=== PATIENT | male | born 1955 | race Caucasian/White ===

== ENCOUNTER 2016-10-13 07:49 | Emergency (ER) | payer OTHER ==
[~2016-10-13] VITALS: Ht 182.9 cm; Wt 97.4 kg
[~2016-10-13 07:49] MED LIST: CITALOPRAM HBR40 M1 PO; Ecotrin PO; FISH OIL 1,2001 EAC4 PO; FISH OIL300 MG PO; GABAPENTIN300 MG PO; GLIPIZIDE5 M1 PO; GLIPIZIDE5 MG PO; GLUCOPHAGE1000 M1 PO; LEXAPRO20 MG PO; LOSARTAN POTASS50 MG PO; MELOXICAM7.5 MG PO; NAPROXEN500 MG PO; PERCOCET 5/31 TABLET PO; PIOGLITAZONE HC15 MG PO; PRILOSEC20 MG PO; PRINIVIL5 MG PO; SIMVASTATIN20 MG PO; VITAMIN B12-FO1 EACH PO; VITAMIN D31000 UNIT PO; VYTORIN 10-401 EACH PO; XANAX0.5 MG PO
[2016-10-13] MEDS ORDERED: PERCOCET 5/31 TABLET PO (08:56)
[2016-10-13 09:21] VITALS: BP 116/66
== END 2016-10-13 09:22 | disposition home or self-care (01) ==
LOC: EME 07:49
DX: S80.02XA Contusion of left knee, initial encounter (principal); E11.9 Type 2 diabetes mellitus without complications; W18.30XA Fall on same level, unspecified, initial encounter
CPT/HCPCS: 73564; 99281; 99283